=== PATIENT | male | born 1945 | race African-American/Black ===

== ENCOUNTER → 2023-08-09 15:23 | Outpatient (REF) | payer MEDICARE, OTHER, SELFPAY | LOC: HWRAD 15:23 | PROVIDERS: ATTENDING PHYSICIAN Internal Medicine Hematology & Oncology; FAMILY PHYSICIAN Family Medicine | DX: C34.12 Malignant neoplasm of upper lobe, left bronchus or lung (principal) | CPT/HCPCS: 71250 ==

== ENCOUNTER → 2023-11-30 10:03 | Outpatient (REF) | payer MEDICARE, OTHER, SELFPAY | LOC: HWRAD 10:03 | PROVIDERS: ATTENDING PHYSICIAN Family Medicine | DX: R10.10 Upper abdominal pain, unspecified (principal) | CPT/HCPCS: 74177; Q9967 ==

== ENCOUNTER 2023-11-30 16:29 | Inpatient (IN) | payer MEDICARE, OTHER, SELFPAY ==
[2023-11-30 13:40] VITALS: BP 145/99
--- NOTE | 2023-11-30 15:06 | ED.GENMED ---
History of Present Illness
General
Chief Complaint: Abdominal Symptoms
Source: patient
Exam Limitations: none
Time Seen by Provider: 11/30/23 13:59
History of Present Illness
History of Present Illness:
Patient is an 78-year-old male with past medical history of lung cancer status post left upper lobectomy, SD CAD with PCI and stenting hypertension hyperlipidemia and set up endovenous type II chronic kidney disease stage III sleep apnea COPD
arthritis glaucoma asthma who presents to the ER for evaluation of left side abdominal pain. Patient is having slight abdominal pain for the past couple days and had an outpatient CAT scan today done at the [facility] was sent here to the ER.
CAT scan report reads: Acute diverticulitis of the distal descending colon with suspicion for developing pericolonic abscess that measures up to 3.2 cm. Patient denies any nausea vomiting fever chills
Past History
Past History
ED Past Medical History: None and IDDM
ED Past Surgical History: Orthopedic (Right bicep repair)
Social History
Tobacco: Non-smoker
Alcohol: None
Drug: None
Personal:
Living: with family
Employment: Retired
Family History
Family History: Other (Noncontributory)
Review of Systems
Review of Systems
Allergies reviewed?: Yes
All Other Systems: ROS reviewed and negative except as documented in HPI and ROS
Constitutional: Reports no symptoms; Denies fever, fatigue or chills
Respiratory: Reports no symptoms
Cardiac: Reports no symptoms
ABD/GI: Reports abdominal pain (left sided abd pain )
: Reports no symptoms
Musculoskeletal: Reports no symptoms
Skin: Reports no symptoms
Neurological: Reports no symptoms
Psychiatric: Reports no symptoms
Phy Exam
General Physical Exam
General Presentation: no apparent distress
General age: appears stated age
General Skin: warm and dry
General Habitus: normal
General Mental: alert
General Hydration: appears well hydrated
Cardiovascular Exam
Cardiovascular Exam: regular rate/rhythm, no murmur and normal peripheral pulses
Pulmonary Exam
Pulmonary Exam: lungs clear and no respiratory distress
Gastrointestinal Exam
Gastrointestinal Exam: soft and other (left side abd tenderness no guarding )
Neurological Exam
Neurological Exam: alert and oriented x3
Musculoskeletal Exam
Musculoskeletal Exam: full ROM
Skin Exam
Skin Exam: normal color and warm/dry
Psychiatric Exam
Psychiatric Exam: normal mood/affect
Course
Orders/Labs/Results
Orders:
Orders
11/30/23 15:12
Complete Blood Count/With Diff Urgent
Comprehensive Metabolic Panel Urgent
Abnormal Lab Results
11/30/23
15:12
RBC 3.75 L 10^6/uL
(4.70-6.10)
Hgb 10.6 L g/dL
(13.0-18.0)
Hct 31.2 L %
(39.0-52.0)
Monocytes % 9.6 H %
(1.7-9.3)
BUN 22 H mg/dl
(9-20)
Glucose 111 H mg/dl
(70-99)
11/30/23 15:12
11/30/23 15:12
Vital Signs
Initial and Last Documented VS:
Initial Vital Signs
Temp Pulse Resp BP Pulse Ox
98.2 F 90 18 145/99 98
11/30/23 13:40 11/30/23 13:40 11/30/23 13:40 11/30/23 13:40 11/30/23 13:40
Last Documented Vital Signs
Temp Pulse Resp BP Pulse Ox
98.2 F 67 16 129/84 99
11/30/23 13:40 11/30/23 15:21 11/30/23 15:21 11/30/23 15:21 11/30/23 15:21
MDM/Problems Addressed
Differential Diagnosis Includes:
not limited to: diverticulitis
MDM/Problems Addressed:
Patient is an 78-year-old male who has had left side abdominal pain for the past couple days had an outpatient CAT scan done today at the [facility] was sent to the ER for evaluation of diverticulitis. I did review CAT scan CAT scan does show
acute diverticulitis of the distal descending colon with suspicion for developing pericolonic abscess that measures up 3.2 cm. Patient is afebrile normal white count nontoxic. Normal chemistries.
will order Cipro Flagyl and admit to the hospital service.
Chronic conditions affecting care:
Hypertension hyperlipidemia SD history of lung cancer
*Radiology
Radiology exam reviewed: radiology read reviewed
*Pulse Oximetry
Patient hypoxic: no
*Critical Care Note
Total Time (30-74mins, 75-104mins- exclusive of procedures): Not Applicable
ED Attending Note
-
Portions of this chart may have been created with voice recognition software.� Occasional wrong word or��sound alike� substitutions may have occurred due to the inherent limitations of voice recognition software.
Discharge Plan
Departure
Patient Disposition: Admit
Date of Disposition: 11/30/23
Time of Disposition: 15:53
Admit to: Med/Surg
Admit to doctor: hospitalist
Presentation/result/management discussed w/ accepting MD/DO: Hospitalist
Patient with high blood pressure during this ER visit?: No
Condition: Fair
Covid-19: Not Applicable
Discharge Problem:
diverticulitis with possible abscess
Prescriptions:
No Action
valsartan 160 mg Capsule
160 mg PO DAILY
metoprolol succinate 25 mg Tablet Extended Release 24 Hr
25 mg PO DAILY
albuterol sulfate [Ventolin HFA] 90 mcg/actuation Hfa Aerosol Inhaler
1 puff INHALATION Q6H PRN (Reason: wheezing )
insulin aspart U-100 [Novolog FlexPen U-100 Insulin] 100 unit/mL (3 mL) Insulin Pen
6 unit SC TID
rosuvastatin [Crestor] 5 mg Tablet
5 mg PO DAILY
cholecalciferol (vitamin D3) [Vitamin D3] 25 mcg (1,000 unit) Tablet
25 mcg PO DAILY
hydrochlorothiazide 12.5 mg Tablet
12.5 mg PO DAILY
insulin glargine [Lantus Solostar U-100 Insulin] 100 unit/mL (3 mL) Insulin Pen
34 unit SC DAILY
acetaminophen 325 mg Tablet
650 mg PO Q4HPRN PRN (Reason: temp >102 F and/or mild pain) Qty: 0 0RF
tramadol 50 mg tablet
50 mg PO Q6HPRN PRN (Reason: moderate-severe pain) Qty: 28 0RF
Rx Instructions:
ongoing pain control. Attending Dr. Darrius Aguila MD
Referrals:
Herminia Bravo MD [Family Provider] -
Interventions
Interventions:
*Risk Screen - Suicide Last Done: 11/30/23 13:33
*General Assessment Last Done: 11/30/23 13:40
*Neglect/Abuse Screening Last Done: 11/30/23 13:40
ED- Fall Risk Assessment Last Done: 11/30/23 15:21
*ED COVID-19 Vaccine History Last Done: 11/30/23 15:21
IH-Iiedca-Iaerxenngk Assessment Last Done: 11/30/23 15:21
Discharge Date and Time
Print Language: LITHUANIAN
--- NOTE | 2023-11-30 15:08 | EDRN ---
Isabel Alicia [employer]SEM[employer] in room w/ pt at this time.
[2023-11-30 15:21] VITALS: BP 129/84; BMI 27.5
[2023-11-30 15:23] LABS: % Basophils 0.3 % (0-2); % Eosinophils 2.2 % (0-6); % Immature Granulocytes 0.2 % (0-0.5); % Lymphocytes 26.5 % (20.5-51.1); % Monocytes 9.6 % (1.7-9.3); % Neutrophils 61.2 % (42.2-75.2); Absolute Eosinophils 0.1 10^3/uL (0-0.7); Absolute Lymphocytes 1.6 10^3/uL (1.2-3.4); Absolute Monocytes 0.6 10^3/uL (0.1-0.6); Absolute Neutrophils 3.6 10^3/uL (1.4-6.5); Hematocrit 31.2 % (39.0-52.0); Hemoglobin 10.6 g/dL (13.0-18.0); Mean Corpuscular Hgb 28.3 pg (27.0-31.0); Mean Corpuscular Volume 83.2 fL (80.0-94.0); Mean Platelet Volume 9.6 fL (7.4-10.4); Nucleated Red Blood Cells % 0 % (-); Platelet Count 255 10^3/uL (130-400); Red Blood Cell Count 3.75 10^6/uL (4.70-6.10); Red Cell Dist. Width 14.4 % (11.5-14.5); White Blood Cell Count 5.9 10^3/uL (4.8-10.8)
[2023-11-30 15:37] LABS: ALT (SGPT) 13 U/L (0-50); AST (SGOT) 20 U/L (17-59); Albumin 3.9 g/dl (3.5-5.0); Alkaline Phosphatase 76 U/L (38-126); Blood Urea Nitrogen 22 mg/dl (9-20); Calcium 9.4 mg/dl (8.4-10.2); Carbon Dioxide 24 mmol/L (22-30); Chloride 103 mmol/L (98-107); Estimated Creatinine Clearance 48 ml/min; Glucose 111 mg/dl (70-99); Potassium 3.8 mmol/L (3.5-5.1); Sodium 142 mmol/L (135-145); Total Bilirubin 0.6 mg/dl (0.2-1.3); Total Protein 6.8 g/dl (6.3-8.2); eGFR 55.53
[2023-11-30 16:00] VITALS: BP 120/93
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
[2023-11-30] MEDS: FLAGYL 500 MG 100 IV (16:18)
--- NOTE | 2023-11-30 16:55 | EDRN ---
No Delay Nurse Report sent to 4th floor E for M/S bed 403.2 at this time w/ call placed to floor and message left for RN who will care for pt.
[2023-11-30] MEDS: CIPRO 400 MG IV (16:56)
[2023-11-30] MEDS: CIPRO 400 MG 200 IV (17:12)
[2023-11-30 17:36] VITALS: BMI 26.8
[2023-11-30 17:37] VITALS: BP 146/98
[2023-11-30 18:16] LABS: Glucose - Point of Care 150 mg/dl (70-99)
[2023-11-30] MEDS: D5LR 1000 IV (18:16)
[2023-11-30] MEDS: LOVENOX 40 MG SC (18:18)
[2023-11-30] MEDS: NOVOLOG FLEXPEN-LOW RESISTANCE 1 UNITS SC (18:36)
[2023-11-30] MEDS: SINGULAIR 10 MG PO (21:09)
[2023-11-30 23:00] VITALS: BP 123/72
[2023-11-30] MEDS: ZOSYN 50 IV (23:58)
[2023-12-01 00:53] LABS: Glucose - Point of Care 137 mg/dl (70-99)
[2023-12-01] MEDS: NOVOLOG FLEXPEN-LOW RESISTANCE SC (01:01)
[2023-12-01] MEDS: D5LR 1000 IV ×2 (05:09→17:08)
[2023-12-01] MEDS: ZOSYN 50 IV ×4 (05:09→23:24)
[2023-12-01 05:30] LABS: Glucose - Point of Care 178 mg/dl (70-99)
[2023-12-01] MEDS: NOVOLOG FLEXPEN-LOW RESISTANCE 1 UNITS SC ×3 (05:31→17:07)
--- NOTE | 2023-12-01 06:29 | PTCARENOTE ---
ax3 modoc- afebrile bp wnl- no abd pain- iv fluids per orders. pt expresses feeling hunger- npo status reviewed. voids in urinal- rings for assistance
[2023-12-01 07:30] VITALS: BP 127/73
--- NOTE | 2023-12-01 07:31 | PTCARENOTE ---
pt aaox3. states 2/10 pain in left abd does not want any pain med at this time. room air.
[2023-12-01 07:45] LABS: % Immature Granulocytes 0.3 % (0-0.5); % Lymphocytes 33.5 % (20.5-51.1); % Monocytes 10.9 % (1.7-9.3); % Neutrophils 48.3 % (42.2-75.2); Absolute Eosinophils 0.2 10^3/uL (0-0.7); Absolute Lymphocytes 1.3 10^3/uL (1.2-3.4); Absolute Monocytes 0.4 10^3/uL (0.1-0.6); Absolute Neutrophils 1.9 10^3/uL (1.4-6.5); Hematocrit 31.8 % (39.0-52.0); Hemoglobin 10.8 g/dL (13.0-18.0); Mean Corpuscular Hgb 29.2 pg (27.0-31.0); Mean Corpuscular Volume 85.9 fL (80.0-94.0); Mean Platelet Volume 9.7 fL (7.4-10.4); Nucleated Red Blood Cells % 0 % (-); Platelet Count 230 10^3/uL (130-400); Red Cell Dist. Width 14.2 % (11.5-14.5); White Blood Cell Count 3.9 10^3/uL (4.8-10.8)
[2023-12-01 08:03] LABS: Blood Urea Nitrogen 18 mg/dl (9-20); Calcium 9.4 mg/dl (8.4-10.2); Carbon Dioxide 27 mmol/L (22-30); Chloride 103 mmol/L (98-107); Estimated Creatinine Clearance 45 ml/min; Glucose 173 mg/dl (70-99); Potassium 4.3 mmol/L (3.5-5.1); Sodium 143 mmol/L (135-145); eGFR 50.81
[2023-12-01 09:57] LABS: Glycohemoglobin (HgbA1c) 7.3 % (4.0-5.6)
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
--- NOTE | 2023-12-01 11:40 | CON.GS ---
Addendum entered and electronically signed by Elmer Fournier MD 12/01/23 16:32:
Patient seen and examined. Agree with assessment plan as documented below.
Patient is an 78 yo M with a PMH of HTN, HLD, CAD s/p PCI with stent, NIDDM, CKD, and lung ca s/p LULobectomy who presents to with approximately 5 to 6 days of LLQ abdominal pain. States that his symptoms began acutely earlier this week. He
describes a sharp pain in his LLQ as well as a 'heat' on that side. Symptoms persisted prompting presentation to the ED. Associated nausea, no vomiting. Reports fevers and chills at home. Reports recently passing flatus as well as a nonbloody
formed bowel movement just prior to encounter. He denies any prior episodes of diverticulitis. He denies any bloody stools or weight loss. No prior colonoscopy. Family history notable for colon cancer in 2 brothers. Currently he states that his
pain is significantly improved.
Gen: NAD
Abd: soft, minimal discomfort in LLQ, non-distended, non-peritoneal
Patient is an 78 yo M p/w diverticulitis with associated abscess formation.
Natural history and pathophysiology of diverticulitis was discussed. Anatomy was reviewed. Workup thus far including CT scan imaging and labs were reviewed. We discussed and considered IR drainage of abscess, however, small nature and size, and
likely intramural with narrow window for access. Given his significant clinical improvement and overall stability, risks of IR drainage at this time deemed greater than potential benefit. We discussed that should he have worsening abdominal pain,
fevers, rising white count would likely proceed with repeat CT scan imaging to assess for improvement or potential ability for IR drain at that time. All questions answered.
--Continue nonoperative measures at this time, will follow closely
--Continue IV abx
--OK for clear liquids
--Trend labs/exams
--Medical management as per primary team
Original Note:
Consultation
-
Date/Time Consultation Requested: 12/01/23 [id number]
Requesting Provider: Deena
Medical History
-
Chief Complaint: Abdominal pain
History of Present Illness:
78 yo male with a h/o NIDDM, CKD, Lung Ca with left lobectomy, CAD with stent and asthma with no prior colonoscopy in the past who presented through the ED with abdominal pain which began about 5-6 days ago and persisted to the left side. He noted
he felt a 'heat' on that side as well. He does note nausea yesterday but no vomiting. He also reported fever/chills at home as well. He has been able to pass flatus and bowel movements with a BM just prior to exam. He was evaluated by his PCP as an
outpatient and CT imaging was ordered and completed in the outpatient setting with findings of diverticulitis. He was therefore advised to present to the ED for evaluation yesterday and was admitted overnight. He notes that since admission, his pain
has very much improved. He denies further nausea. He has been afebrile. On exam, he is minimally tender to the left lower abdomen without distention noted.
Past Medical History
Past Medical History: Asthma, CAD (with stent), Cancer (lung), HTN, Hypercholesterolemia, NIDDM, Renal Failure (ckd stage 3) and Other (chronic back pain, glaucoma)
Past Surgical History: Cardiac (stent), Orthopedic (left bicep/rotator cuff repair, left carpal tunnel release) and Other (robotic assisted left upper lobe resection 2021, cataracts)
Social History
Tobacco: Former Smoker (pipe, quit >20 years ago)
Alcohol: Former (quit >20 years ago)
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
Family History
Family History: Reviewed & Not Pertinent, Cancer (Colon cancer in 2 siblings) and Diabetes
Allergies / Home Medications
Allergy/AdvReac Type Severity Reaction Status Date / Time
TULIO Inhibitors Allergy lip swells Verified 01/13/23 13:10
[Tulio Inhibitors]
pollen extracts Allergy HAY Verified 01/13/23 13:10
FEVER-runny
nose,
runny
eyes,
sneezing
�Medication �Instructions �Recorded �Confirmed �Type
albuterol sulfate 90 mcg/actuation 1 puff inhalation R Q6HPRN PRN 11/07/21 11/30/23 History
aerosol inhaler (Ventolin HFA) wheezing
cholecalciferol (vitamin D3) 25 25 mcg PO DAILY Supplement 11/07/21 11/30/23 History
mcg (1,000 unit) tablet (Vitamin
D3)
hydrochlorothiazide 12.5 mg tablet 12.5 mg PO DAILY Fluid 11/07/21 11/30/23 History
retention/Swelling
insulin aspart U-100 100 unit/mL 1 sliding scale dose SC AC Diabetes 11/07/21 11/30/23 History
(3 mL) subcutaneous pen (Novolog
FlexPen U-100 Insulin aspart)
insulin glargine 100 unit/mL (3 0 unit SC HS Diabetes 11/07/21 11/30/23 History
mL) subcutaneous pen (Lantus
Solostar U-100 Insulin)
acetaminophen 325 mg tablet 650 mg (2 x 325 mg) PO Q4HPRN PRN 12/19/21 11/30/23 Rx
temp >102 F and/or mild pain #0
tabs
metformin 500 mg tablet,extended 500 mg PO DAILY Diabetes 11/30/23 11/30/23 History
release 24 hr
montelukast 10 mg tablet 10 mg PO HS allergies/lung problem 11/30/23 11/30/23 History
rosuvastatin 5 mg tablet 5 mg PO DAILY High Cholesterol 11/30/23 11/30/23 History
valsartan 160 mg tablet 160 mg PO DAILY Blood Pressure 11/30/23 11/30/23 History
Review of Systems
-
History Source: Patient
All other systems: Negative unless noted
A 10 point review of systems was completed, and was negative except as per HPI.
Physical Exam
Vital Signs
Temp Pulse Resp BP Pulse Ox
97.9 F 67 14 127/73 94
12/01/23 07:30 12/01/23 07:30 12/01/23 07:30 12/01/23 07:30 12/01/23 07:30
11/30/23 12/01/23 12/02/23
06:59 06:59 06:59
Actual Weight 87.146 kg
Body Mass Index (BMI) 26.8
Lab Results
12/01/23 07:09
12/01/23 07:09
WBC 3.9 10^3/uL (4.8-10.8) L 12/01/23 07:09
Hgb 10.8 g/dL (13.0-18.0) L 12/01/23 07:09
Hct 31.8 % (39.0-52.0) L 12/01/23 07:09
Plt Count 230 10^3/uL (130-400) 12/01/23 07:09
Abs Immat Gran (auto) 0.0 10^3/uL (0-0.05) 12/01/23 07:09
Neutrophils % 48.3 % (42.2-75.2) 12/01/23 07:09
Physical Exam
General: Well Developed and Well Nourished
HEENT: Moist Mucous Membranes
Respiratory: Non Labored Respirations
GI: Soft, Non Distended and Tender (minimal to LLQ)
Skin: Warm and Dry
Neuro: Awake, Alert and AO x 3
Psych: Calm
Data Reviewed
-
CT Scan: Image Personally Visualized and interpreted, Report Reviewed by me, Discussed with Physician and Discussed with Patient
Labs: Labs Reviewed by me, Discussed with Physician and Discussed with Patient
Old Records: Reviewed
Assessment / Plan
-
78 yo male with a h/o NIDDM, CKD, Lung Ca with left lobectomy 2021, CAD with stent and asthma with no prior colonoscopy although noted family hx of colon ca who presented through the ED with abdominal pain which began about 5-6 days ago and
persisted to the left side. He was evaluated by his PCP as an outpatient and CT imaging was ordered and completed in the outpatient setting with findings of diverticulitis with a possible developing pericolonic abscess present.
He has had significant improvement since admission with bowel rest and antibiotics. Passing stools/flatus. No n/v. Mild leukopenia. Cr near baseline. AFVSS.
--Continue nonoperative measures at this time, will follow closely
--Continue IV abx
--Ok for clear liquids
--Trend labs/exams
--Medical management as per primary team
[2023-12-01 11:50] LABS: Glucose - Point of Care 157 mg/dl (70-99)
[2023-12-01 12:17] VITALS: BMI 26.8
[2023-12-01 15:31] VITALS: BP 136/89
[2023-12-01 16:38] LABS: Glucose - Point of Care 173 mg/dl (70-99)
[2023-12-01] MEDS: LOVENOX 40 MG SC (17:06)
--- NOTE | 2023-12-01 17:13 | CM ---
CM met with Eloy at bedside to provide Advance Directive and answer questions.
He states prior to admission he resides in a one story home with two steps to enter. He states prior to admission he ambulated with a single point cane and is independent with adls. Eloy states his daughter resides nearby in [place], [place].
Plan: Eloy will return home at discharge. He will discuss AD with his daughter.
Pharmacy: [facility]
PCP: Herminia Bravo
[2023-12-01] MEDS: SINGULAIR 10 MG PO (19:59)
[2023-12-01 21:04] LABS: Glucose - Point of Care 173 mg/dl (70-99)
[2023-12-01 23:00] VITALS: BP 141/90
[2023-12-02] MEDS: ZOSYN 50 IV ×3 (05:46→17:23)
[2023-12-02] MEDS: D5LR 1000 IV (05:46)
[2023-12-02 07:25] VITALS: BP 129/77
[2023-12-02 07:41] LABS: Glucose - Point of Care 166 mg/dl (70-99)
[2023-12-02 08:14] LABS: % Basophils 1.4 % (0-2); % Eosinophils 8.3 % (0-6); % Immature Granulocytes 0.3 % (0-0.5); % Monocytes 11.2 % (1.7-9.3); % Neutrophils 36.8 % (42.2-75.2); Absolute Basophils 0.1 10^3/uL (0-0.2); Absolute Eosinophils 0.3 10^3/uL (0-0.7); Absolute Lymphocytes 1.5 10^3/uL (1.2-3.4); Absolute Monocytes 0.4 10^3/uL (0.1-0.6); Absolute Neutrophils 1.3 10^3/uL (1.4-6.5); Blood Urea Nitrogen 14 mg/dl (9-20); Calcium 9.4 mg/dl (8.4-10.2); Carbon Dioxide 29 mmol/L (22-30); Chloride 103 mmol/L (98-107); Estimated Creatinine Clearance 45 ml/min; Glucose 156 mg/dl (70-99); Hemoglobin 10.5 g/dL (13.0-18.0); Mean Corp Hgb Conc. 33.9 g/dL (33.0-37.0); Mean Corpuscular Hgb 28.7 pg (27.0-31.0); Mean Corpuscular Volume 84.7 fL (80.0-94.0); Mean Platelet Volume 10.2 fL (7.4-10.4); Nucleated Red Blood Cells % 0 % (-); Platelet Count 281 10^3/uL (130-400); Potassium 4.6 mmol/L (3.5-5.1); Red Blood Cell Count 3.66 10^6/uL (4.70-6.10); Red Cell Dist. Width 13.9 % (11.5-14.5); Sodium 143 mmol/L (135-145); White Blood Cell Count 3.5 10^3/uL (4.8-10.8); eGFR 50.81
[2023-12-02] MEDS: NOVOLOG FLEXPEN-LOW RESISTANCE 1 UNITS SC ×2 (08:50→11:47)
--- NOTE | 2023-12-02 10:31 | W.PN.GS2 ---
Addendum entered and electronically signed by Elmer Fournier MD 12/02/23 10:45:
Patient seen and examined. Agree with assessment plan as below.
Improved abdominal pain. No nausea or vomiting. Passing flatus and BMs. Afebrile.
Gen: NAD
Abd: soft, NT/ND, non-peritoneal
Patient is an 78 yo M p/w diverticulitis with associated abscess formation.
Doing well with antibiotics and continuing to improve
AFVSS
Mild leukopenia persists, likely related to antibiotics
--Continue nonoperative measures at this time, will follow closely
--Continue IV abx
--Advance to LRD
--Trend labs/exams
--Medical management as per primary team
Original Note:
Today's Communication / Plan
-
Advance diet
Continue abx
Assessment / Plan
-
78 yo male /w diverticulitis with associated abscess formation. Doing well with antibiotics and continuing to improve
AFVSS
Mild leukopenia persists
--Continue nonoperative measures at this time, will follow closely
--Continue IV abx
--Advance to LRD
--Trend labs/exams
--Medical management as per primary team
Subjective Data
-
Date of Service: December 02, 2023
Patient seen and examined at bedside with Dr. Fournier. Pain still present to [facility] but continues to improve. Denies n/v. Tolerating diet and passing flatus/stools.
Objective Data
-
Intake and Output
12/01/23 12/02/23 12/03/23
06:59 06:59 06:59
Intake Total 1320 / 1320 2480 / 2480 480 / 480
Output Total 850 / 850 550 / 550
Balance 470 / 470 1930 / 1930 480 / 480
Intake:
Oral fluids 60 / 60 1520 / 1520 480 / 480
IV fluids (Total) 960 / 960 960 / 960
IV piggybacks 300 / 300
Output:
Urine, Voided 850 / 850 550 / 550
Other:
Number of approximated MODERATE 3
amounts of urine
How many times incontinent 1
MODERATE amount urine
Vital Signs
Temp Pulse Resp BP Pulse Ox
97.6 F 75 18 129/77 98
12/02/23 07:25 12/02/23 07:25 12/02/23 07:25 12/02/23 07:25 12/02/23 07:25
Lab Results
12/02/23 05:47
12/02/23 05:47
Calcium 9.4 mg/dl (8.4-10.2) 12/02/23 05:47
Total Bilirubin 0.6 mg/dl (0.2-1.3) 11/30/23 15:12
AST 20 U/L (17-59) 11/30/23 15:12
ALT 13 U/L (0-50) 11/30/23 15:12
Alkaline Phosphatase 76 U/L (38-126) 11/30/23 15:12
Total Protein 6.8 g/dl (6.3-8.2) 11/30/23 15:12
Albumin 3.9 g/dl (3.5-5.0) 11/30/23 15:12
Physical Exam
-
NAD
ABD soft, mild tender to LLQ, ND
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
[2023-12-02 11:44] LABS: Glucose - Point of Care 197 mg/dl (70-99)
[2023-12-02 15:35] VITALS: BP 154/80
[2023-12-02 16:53] LABS: Glucose - Point of Care 120 mg/dl (70-99)
[2023-12-02] MEDS: NOVOLOG FLEXPEN-LOW RESISTANCE SC (17:05)
[2023-12-02] MEDS: LOVENOX 40 MG SC (17:18)
[2023-12-02] MEDS: SINGULAIR 10 MG PO (20:52)
[2023-12-02 21:10] LABS: Glucose - Point of Care 166 mg/dl (70-99)
[2023-12-02 23:02] VITALS: BP 117/69
[2023-12-03] MEDS: ZOSYN 50 IV ×3 (00:54→11:36)
[2023-12-03 07:48] VITALS: BP 139/73
[2023-12-03] MEDS: VITAMIN D3 (cholecalciferol) 25 MCG PO (07:58)
[2023-12-03] MEDS: CRESTOR 5 MG PO (07:58)
[2023-12-03 08:09] LABS: Glucose - Point of Care 149 mg/dl (70-99)
[2023-12-03] MEDS: NOVOLOG FLEXPEN-LOW RESISTANCE SC (08:10)
[2023-12-03 08:22] LABS: Hematocrit 31.1 % (39.0-52.0); Hemoglobin 10.5 g/dL (13.0-18.0); Mean Corp Hgb Conc. 33.8 g/dL (33.0-37.0); Mean Corpuscular Hgb 28.2 pg (27.0-31.0); Mean Corpuscular Volume 83.4 fL (80.0-94.0); Mean Platelet Volume 9.8 fL (7.4-10.4); Platelet Count 302 10^3/uL (130-400); Red Blood Cell Count 3.73 10^6/uL (4.70-6.10); Red Cell Dist. Width 13.9 % (11.5-14.5); White Blood Cell Count 3.1 10^3/uL (4.8-10.8)
[2023-12-03 08:55] LABS: Blood Urea Nitrogen 13 mg/dl (9-20); Calcium 9.2 mg/dl (8.4-10.2); Carbon Dioxide 22 mmol/L (22-30); Chloride 106 mmol/L (98-107); Estimated Creatinine Clearance 42 ml/min; Glucose 128 mg/dl (70-99); Sodium 143 mmol/L (135-145); eGFR 46.77
--- NOTE | 2023-12-03 09:55 | W.PN.CRS1 ---
Today's Communication / Plan
-
continue abx course
eventual colonoscopy as an outpatient
f/u in the office with Dr. Cox
Assessment/Plan
-
78 yo male /w diverticulitis with associated abscess formation. Doing well with antibiotics and continuing to improve
AFVSS
Mild leukopenia persists
--Continue nonoperative measures at this time.
--Continue IV abx, transition to po as an outpatient to finish abx course
--Continue LRD for a few weeks
--Trend labs/exams
--Medical management as per primary team
--Will need eventual colonoscopy as an outpatient (patient has never had one)
--Follow up in the office with Dr. Cox in a few weeks
--Okay for discharge from our perspective, discussed with Dr. Resendiz
--I updatd the patient's daughter, Nicolette, by phone
Subjective Data
Subjective Data
Date of Service: December 03, 2023
Patient states he is feeling better. He has no pain today. His appetite is 'not great' but he is tolerating solid foods. He has no complaints at this time. He has bowel function.
Objective Data
-
Vital Signs
Temp Pulse Resp BP Pulse Ox
98.1 F 58 18 139/73 98
12/03/23 07:48 12/03/23 07:48 12/03/23 07:48 12/03/23 07:48 12/03/23 07:48
Intake & Output
12/02/23 12/03/23 12/04/23
06:59 06:59 06:59
Intake Total 2480 / 2480 1919
Output Total 550 / 550
Balance 1929 / 1929
Intake:
Oral fluids 1520 / 1520 1919
IV fluids (Total) 960 / 960
Output:
Urine, Voided 550 / 550
Other:
Number of approximated MODERATE 3 2
amounts of urine
How many times incontinent 1
MODERATE amount urine
Lab Results
12/03/23 07:06
12/03/23 07:06
Physical Exam
-
General: No Acute Distress and AOx3
Abdomen: Soft, Non Distended and Non Tender
Skin: Warm and Dry
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
--- NOTE | 2023-12-03 11:26 | W.DS.TRANS ---
DC Summary - [employer]
-
Discharge Instructions:
Discharge Diagnosis/Procedures Diverticulitis
Diet Low Fiber,Diabetic, Carb Controlled
Activity No strenuous activity
Driving Restrictions Not until seen by your Dr
Bathing Restrictions None
Blood Work CBC, BMP within week
Instructions: Low Fiber Diet
Stand-Alone Forms:
Changes to Home Medications: Yes
Discharge Medications:
DC Medications w/original date entered in [facility]
albuterol sulfate 90 mcg/actuation aerosol inhaler (Ventolin HFA) 1 puff inhalation R Q6HPRN PRN wheezing 11/07/21
cholecalciferol (vitamin D3) 25 mcg (1,000 unit) tablet (Vitamin D3) 25 mcg PO DAILY Supplement 11/07/21
insulin aspart U-100 100 unit/mL (3 mL) subcutaneous pen (Novolog FlexPen U-100 Insulin aspart) 1 sliding scale dose SC AC Diabetes 11/07/21
insulin glargine 100 unit/mL (3 mL) subcutaneous pen (Lantus Solostar U-100 Insulin) 0 unit SC HS Diabetes 11/07/21
acetaminophen 325 mg tablet 650 mg (2 x 325 mg) PO Q4HPRN PRN temp >102 F and/or mild pain #0 tabs 12/19/21
metformin 500 mg tablet,extended release 24 hr 500 mg PO DAILY Diabetes 11/30/23
montelukast 10 mg tablet 10 mg PO HS allergies/lung problem 11/30/23
rosuvastatin 5 mg tablet 5 mg PO DAILY High Cholesterol 11/30/23
amoxicillin 875 mg-potassium clavulanate 125 mg tablet 1 tab PO Q12H #30 tabs 12/03/23
Home Medication Changes
hold Valsartan and HCTZ until labs rechecked
Augmentin started
Pending Results: No
[2023-12-03 11:45] LABS: % Basophils 1.6 % (0-2); % Eosinophils 5.6 % (0-6); % Immature Granulocytes 0.3 % (0-0.5); % Lymphocytes 48.5 % (20.5-51.1); % Monocytes 10.5 % (1.7-9.3); % Neutrophils 33.5 % (42.2-75.2); Absolute Basophils 0.1 10^3/uL (0-0.2); Absolute Eosinophils 0.2 10^3/uL (0-0.7); Absolute Lymphocytes 1.5 10^3/uL (1.2-3.4); Absolute Monocytes 0.3 10^3/uL (0.1-0.6); Nucleated Red Blood Cells % 0 % (-)
[2023-12-03 12:02] LABS: Glucose - Point of Care 157 mg/dl (70-99)
[2023-12-03] MEDS: NOVOLOG FLEXPEN-LOW RESISTANCE 1 UNITS SC (12:22)
--- NOTE | 2023-12-03 12:30 | CM ---
MD entered order for dc.
Spoke with pt he agrees with dc .
He said his GF Stephanie will drive him home.
Spoke with dgt Cecelia she agrees with IMM and dc today .
Requested [facility]N with [facility] Referral placed in care port
PLAN Home with [facility] if accepted
[2023-12-03 13:28] VITALS: BP 140/73
== END 2023-12-03 14:13 | disposition home health service (06) | DRG 392 ==
LOC: 4 EAST ACU 16:29
PROVIDERS: Nurse Practitioner; ADMITTING PHYSICIAN Hospitalist; ATTENDING PHYSICIAN Internal Medicine; EMERGENCY PHYSICIAN Emergency Medicine; FAMILY PHYSICIAN Family Medicine; OTHER PHYSICIAN Surgery
DX: K57.20 Diverticulitis of large intestine with perforation and abscess without bleeding (principal); E11.22 Type 2 diabetes mellitus with diabetic chronic kidney disease; N18.32 Chronic kidney disease, stage 3b; I12.9 Hypertensive chronic kidney disease with stage 1 through stage 4 chronic kidney disease, or unspecified chronic kidney disease; J44.89 Other specified chronic obstructive pulmonary disease; E78.00 Pure hypercholesterolemia, unspecified; G89.29 Other chronic pain; M54.9 Dorsalgia, unspecified; I25.10 Atherosclerotic heart disease of native coronary artery without angina pectoris; Z95.5 Presence of coronary angioplasty implant and graft; G47.30 Sleep apnea, unspecified; M19.90 Unspecified osteoarthritis, unspecified site; H40.9 Unspecified glaucoma; Z79.4 Long term (current) use of insulin; Z79.84 Long term (current) use of oral hypoglycemic drugs; Z79.899 Other long term (current) drug therapy; Z87.891 Personal history of nicotine dependence; Z85.118 Personal history of other malignant neoplasm of bronchus and lung; Z90.2 Acquired absence of lung [part of]
CPT/HCPCS: 74177; 80048; 80053; 82962; 83036; 85025; 96365; 99284; Q9967

== ENCOUNTER → 2023-12-17 11:08 | Outpatient (REF) | payer MEDICARE, OTHER, SELFPAY | LOC: HWRAD 11:08 | PROVIDERS: ATTENDING PHYSICIAN Family Medicine | DX: R10.11 Right upper quadrant pain (principal) | CPT/HCPCS: 76700 ==

== ENCOUNTER → 2024-01-24 11:23 | Outpatient (REF) | payer MEDICARE, OTHER, SELFPAY | LOC: HWRAD 11:23 | PROVIDERS: ATTENDING PHYSICIAN Internal Medicine Hematology & Oncology; FAMILY PHYSICIAN Family Medicine | DX: C34.12 Malignant neoplasm of upper lobe, left bronchus or lung (principal) | CPT/HCPCS: 71250 ==

== ENCOUNTER 2024-02-11 06:28 | Day surgery (SDC) | payer MEDICARE, OTHER, SELFPAY ==
[2024-02-11 07:39] LABS: Glucose - Point of Care 121 mg/dl (70-99)
== END 2024-02-11 09:06 | disposition home or self-care (01) ==
LOC: GI 06:28
PROVIDERS: ATTENDING PHYSICIAN Internal Medicine
DX: Z12.11 Encounter for screening for malignant neoplasm of colon (principal); D12.0 Benign neoplasm of cecum; D12.8 Benign neoplasm of rectum; K57.30 Diverticulosis of large intestine without perforation or abscess without bleeding; K64.8 Other hemorrhoids; Z80.0 Family history of malignant neoplasm of digestive organs
CPT/HCPCS: 45385; 45380; 88305; 82962

== ENCOUNTER → 2024-03-18 11:22 | Outpatient (REF) | payer MEDICARE, OTHER, SELFPAY | LOC: HWRAD 11:22 | PROVIDERS: ATTENDING PHYSICIAN Family Medicine | DX: R05.1 Acute cough (principal); R06.02 Shortness of breath | CPT/HCPCS: 71046 ==

== ENCOUNTER → 2024-06-05 10:49 | Outpatient (REF) | payer MEDICARE, OTHER, SELFPAY | LOC: EMG 10:49 | PROVIDERS: ATTENDING PHYSICIAN Orthopaedic Surgery; FAMILY PHYSICIAN Family Medicine | DX: R20.0 Anesthesia of skin (principal); G56.01 Carpal tunnel syndrome, right upper limb | CPT/HCPCS: 95886; 95909 ==

== ENCOUNTER → 2024-06-22 07:58 | Outpatient (REF) | payer MEDICARE, OTHER, SELFPAY | LOC: PAVMRI 07:58 | PROVIDERS: ATTENDING PHYSICIAN Orthopaedic Surgery; FAMILY PHYSICIAN Nurse Practitioner Acute Care | DX: M54.12 Radiculopathy, cervical region (principal) | CPT/HCPCS: 72141 ==

== ENCOUNTER → 2024-08-18 09:07 | Outpatient (REF) | payer MEDICARE, OTHER, SELFPAY ==
[2024-08-18 12:40] LABS: % Basophils 1.3 % (0-2); % Eosinophils 3.2 % (0-6); % Immature Granulocytes 0.3 % (0-0.5); % Lymphocytes 49.6 % (20.5-51.1); % Monocytes 9.5 % (1.7-9.3); % Neutrophils 36.1 % (42.2-75.2); Absolute Basophils 0.1 10^3/uL (0-0.2); Absolute Eosinophils 0.1 10^3/uL (0-0.7); Absolute Lymphocytes 1.9 10^3/uL (1.2-3.4); Absolute Monocytes 0.4 10^3/uL (0.1-0.6); Absolute Neutrophils 1.4 10^3/uL (1.4-6.5); Hematocrit 38.1 % (39.0-52.0); Hemoglobin 12.6 g/dL (13.0-18.0); Mean Corp Hgb Conc. 33.1 g/dL (33.0-37.0); Mean Corpuscular Hgb 28.3 pg (27.0-31.0); Mean Corpuscular Volume 85.4 fL (80.0-94.0); Mean Platelet Volume 10.1 fL (7.4-10.4); Nucleated Red Blood Cells % 0 % (-); Platelet Count 223 10^3/uL (130-400); Red Blood Cell Count 4.46 10^6/uL (4.70-6.10); Red Cell Dist. Width 13.4 % (11.5-14.5); White Blood Cell Count 3.8 10^3/uL (4.8-10.8)
[2024-08-18 13:35] LABS: ALT (SGPT) 19 U/L (0-50); AST (SGOT) 21 U/L (17-59); Albumin 4.8 g/dl (3.5-5.0); Alkaline Phosphatase 86 U/L (38-126); Blood Urea Nitrogen 19 mg/dl (9-20); Carbon Dioxide 25 mmol/L (22-30); Chloride 110 mmol/L (98-107); Glucose 151 mg/dl (70-99); Sodium 144 mmol/L (135-145); Total Bilirubin 0.7 mg/dl (0.2-1.3); Total Protein 7.8 g/dl (6.3-8.2); eGFR > 60.00
== END ==
LOC: HWRAD 09:07
PROVIDERS: ATTENDING PHYSICIAN Internal Medicine Hematology & Oncology; FAMILY PHYSICIAN Family Medicine
DX: C34.12 Malignant neoplasm of upper lobe, left bronchus or lung (principal)
CPT/HCPCS: 36415; 71250; 80053; 85025

== ENCOUNTER → 2024-09-30 07:17 | Outpatient (REF) | payer MEDICARE, OTHER, SELFPAY | LOC: PAVMRI 07:17 | PROVIDERS: ATTENDING PHYSICIAN Neurological Surgery; FAMILY PHYSICIAN Nurse Practitioner Acute Care | DX: R41.3 Other amnesia (principal) | CPT/HCPCS: 70551 ==